=== PATIENT | male | born 1955 | race Caucasian/White ===

== ENCOUNTER → 2018-07-24 | Outpatient (CLI) | END | disposition home or self-care (01) ==

== ENCOUNTER 2018-11-08 07:30 | Inpatient (IN) | payer BC ==
[~2018-11-08] VITALS: Ht 177.8 cm; Wt 87.9 kg
[~2018-11-08 07:30] MED LIST: CEFAZOLIN 2 GM/50 ML (PMX) 50 ML IVPB ONE; HIP PAIN COCKTAIL (CEFUROXIME) INJ SCH; LACTATED RINGER'S 1,000 ML IV* SCH; TRANEXAMIC ACID 1,000 MG in NS 100 ML INTRA-OP X1 IVPB ONE; TRANEXAMIC ACID 1,000 MG in NS 100 ML PRE-OP X1 IVPB ONE
[2019-01-10] VITALS (31 sets, daily range): BP systolic 97–132; BP diastolic 57–80; PULSE 52–88; RESP 15–24; Ht 177.8 cm; Wt 87.9 kg
[2019-01-10] MEDS ORDERED: TRANEXAMIC ACID 1GM/100ML(PMX) 100 ML INTRA-OP X1 IVPB ONE (06:00)
[2019-01-10] MEDS ORDERED: CEFAZOLIN 2 GM/50 ML (PMX) 50 ML IVPB ONE (06:00)
[2019-01-10] MEDS ORDERED: LACTATED RINGER'S 1,000 ML IV* SCH (06:00)
[2019-01-10] MEDS ORDERED: TRANEXAMIC ACID 1GM/100ML(PMX) 100 ML PRE-OP X1 IVPB ONE (06:00)
[2019-01-10] MEDS ORDERED: POLYMYXIN/BACITRACIN 1L IRRIG ONE (07:01)
[2019-01-10] MEDS ORDERED: BACITRACIN 50000 UNITS INJ ONE (07:01)
[2019-01-10] MEDS ORDERED: POLYMYXIN B 500000 UNIT INJ ONE (07:04)
[2019-01-10] MEDS ORDERED: ACET1TAB40 PO (07:10)
--- NOTE | 2019-01-10 07:33 | HPN ---
Date/Time of Note Date/Time of Note DATE: 01/10/19 TIME: 07:33 Interval H&P Admission Note Pt. seen H&P reviewed: No system changes DOC MITCHELL MD Jan 10, 2019 07:33
--- NOTE | 2019-01-10 07:33 | PREAC ---
Date/Time of Note Date/Time of Note DATE: 01/10/19 TIME: 07:32 Anesthesia Eval and Record Evaluation Time Pre-Procedure Interview DATE: 01/10/19 TIME: 07:32 Age 63 Sex male NPO: 8 hrs Preoperative diagnosis L hip oa Planned procedure L hip arthroplasty Past Medical History Past Medical History: Includes Pulm: Other (bronchitis) Musculoskeletal: Osteoarthritis Surgery & Anesthesia Issues No known issue Meds Anticoagulation: No Beta Jerman within 24 hr: No Reason Beta Jerman not given: Pt. not on B-Jerman Reported Medications Acetaminophen with Codeine (Acetaminophen-Cod #3 Tablet) 1 Each Tablet, 1 TAB PO Q6H, #7 TAB 01/10/19 Current Medications Lactated Ringer's 1,000 ml @ 125 mls/hr Q8H IV* ; Start 01/10/19 at 06:00; Stop 01/10/19 at 13:59 Ropivacaine/ Morphine Sulfate/ Clonidine/ Epinephrine/ Ketorolac Tromethamine/ Vancomycin HCl/ Sodium Chloride INTRA-OP INJ ; Start 01/10/19 at 15:30; Stop 01/10/19 at 21:00 Meds reviewed: Yes Allergies Coded Allergies: Sulfa (Sulfonamide Antibiotics) (Verified Allergy, Mild, 01/10/19) Allergies Reviewed: Yes Labs/Studies Labs Reviewed: Reviewed by anesthesiologist test: N/A Studies: ECG Pre-procedure Exam Last vitals Vital Signs Date Temp Pulse Resp B/P (MAP) Pulse Ox O2 O2 Flow FiO2 Time Delivery Rate 01/10/19 98.0 73 18 118/80 97 05:45 (93) Airway: Adequate mouth opening, Adequate thyromental dist Mallampati: Mallampati II Teeth: Normal Lung: Normal Heart: Normal ASA Physical Status ASA physical status: 2 Emergency: None Planned Anesthetic General/MAC: Mask, ETT, MAC Neuraxial: Spinal Planned Pain Management Sub-arachniod narcotics Pre-operative Attestations Prior to commencing anesthesia and surgery, the patient was re-evaluated, there was verification of: *The patient's identity *The results of appropriate recent lab work and preoperative vital signs *The above evaluation not changing prior to induction *Anesthetic plan, risk benefits, alternative and complications discussed with patient/family; questions answered; patient/family understands, accepts and wishes to proceed. JEYSON GROVES Jan 10, 2019 07:33
[2019-01-10] MEDS ORDERED: MIDAZOLAM 1 MG/ML 2 ML INJ ONE (07:41)
[2019-01-10] MEDS ORDERED: morphine SULFATE/PF (10 MG/10 ML) INJ ONE (07:41)
[2019-01-10] MEDS ORDERED: PHENYLephrine (100 MCG/ML) 5ML SYG ONE ×2 (07:57→08:10)
[2019-01-10] MEDS ORDERED: HYDROmorphONE 1 MG/5 ML IV SYRINGE IV PRN ×3 (08:00)
[2019-01-10] MEDS ORDERED: FENTAnyl 50 MCG/ML VIAL IV PRN ×3 (08:00)
[2019-01-10] MEDS ORDERED: MEPERIDINE 25 MG INJ IV PRN (08:00)
[2019-01-10] MEDS ORDERED: ONDANSETRON 4 MG INJ IV PRN (08:00)
[2019-01-10] MEDS ORDERED: METOCLOPRAMIDE 10 MG INJ IV PRN (08:00)
[2019-01-10] MEDS ORDERED: DIPHENHYDRAMINE 50 MG INJ IV PRN (08:00)
[2019-01-10] MEDS ORDERED: ALBUTEROL 0.083% (NEB) 2.5 MG/3 ML AMP HHN PRN (08:00)
[2019-01-10] MEDS ORDERED: TRANEXAMIC ACID 1GM/100ML(PMX) 100 ML ONE (08:05)
--- NOTE | 2019-01-10 09:45 | SIPON ---
Date/Time of Note Date/Time of Note DATE: 01/10/19 TIME: 09:44 Operative Report Preoperative Diagnosis Left Hip Osteoarthritis Postoperative Diagnosis Same Operation/Procedure Performed Left Total Hip Arthroplasty Surgeon Mike Mitchell MD parts room assistant Matheus Botello Second assist: YULIA FISCHER Anesthesia: spinal Estimated blood loss: other Transfusion Required none Specimen bone Grafts/Implants none Complications none MIKE MITCHELL MD Jan 10, 2019 09:45
--- NOTE | 2019-01-10 09:48 | OPR ---
Date/Time of Note Date/Time of Note DATE: 01/10/19 TIME: 09:45 Operative Report Free Text/Dictation DATE OF OPERATION: January 10, 2019 PREOPERATIVE DIAGNOSIS: Left hip osteoarthritis. POSTOPERATIVE DIAGNOSIS: Left hip osteoarthritis. PROCEDURES PERFORMED: 1. Left total hip arthroplasty. CPT code 61236. 2. Computer assisted navigational procedure, CPT code 92282. 3. Interpretation of AP Pelvis x-ray. 4. Interpretation of left hip, 2 views. SURGEON: Doc Mitchell. NURSE CONSULTANT: 1. BHUPINDER Muhammad 2. Matheus Botello. ANESTHESIOLOGIST: Dr. Hassan ANESTHESIA: Spinal ESTIMATED BLOOD LOSS: 300 mL. COMPLICATIONS: None. SPECIMENS: Resected bone. DISPOSITION: PACU in stable condition. IMPLANT USED: A DePuy Corail size KLA 12 stem, 36/+1.5 delta ceramic femoral head, 52 [place] Cup, 36 mm liner COMPLICATIONS: None. DISPOSITION: To PACU in stable condition. INDICATION FOR PROCEDURE: This is an 63 year-old male with endstage osteoarthritis of the left hip who had failed nonoperative management. Risks, benefits, alternatives of surgical intervention were discussed with the patient and informed consent was obtained. The risks of surgery include but are not limited to infection, deep venous thrombosis, pulmonary embolism, leg length discrepancy, fracture, damage to neurovascular structures requiring repair, loosening of the prosthesis, wear of prosthesis, need for revision surgery, heart attack, stroke, need for blood transfusion, risks associated with anesthesia and even . DESCRIPTION OF PROCEDURE: The patient was met in the preoperative suite and the correct operative site was confirmed and marked. Patient was then brought into operating room. After induction of general anesthesia, the patient was placed in the supine position on the table. The left lower extremity was prepped and draped in the usual sterile fashion. Before starting, a timeout was taken to identify the correct operative site, the patients name and medical record number and to confirm the preoperative antibiotics consisting of 1 gram of IV Ancef, along with 1 gram of tranexamic acid were administered. At this point, an 8 cm incision was made approximately 2 cm lateral and 1 cm distal to the ASIS. The incision was carried down to the fascia. The fascia was then incised. Then, 2 Allis clamps were placed. The interval was then bluntly developed and the tensor fascia la was then retracted laterally. The lateral circumflex vessels were identified and coagulated. The anterior capsule was then visualized and a capsulotomy was performed. At this point, markings were made for the napkin ring osteotomy of the femoral neck. Using the saw the initial osteotomy was then made and completed with the use of an osteotome. A Mel was then used to remove the napkin ring and a corkscrew was then placed in the femoral head and the head was then removed. The head was sized to 49 mm. Sequential reaming was begun with a 47 mm reamer, going up to a 51 mm reamer. A trial 52 mm cup was then impacted and the radlink was then used to determine the appropriate an teversion and abduction of the cup. The cup was noted to be in approximately 42 degrees of inclination, and 20 degrees of anteversion. The trial was then removed. The appropriate size cup was then placed and again the radlink was used to determine the inclination and anteversion, and was noted be unchanged. The 36 mm liner was then impacted into place and the final acetabular x-rays were taken which again demonstrated the cup to be in appropriate abduction and anteversion. At this point, the femoral lift was then used and the leg was then placed in external rotation, extension, and adduction. Retractors were placed and the fe moral releases were performed using a box osteotome followed by a canal finder. Sequential broaching was begun with a 8 broach going up to a size 12 broach. The trial 12 mm standard offset stem along with a 36/+1.5 trial head and neck were placed. The hip was then reduced and taken through range of motion, noted to be stable in extension and external rotation of up to 110 degrees. AP x-rays of the pelvis and left hip, 2 view x-rays were taken. The x-rays demonstrated the prosthesis to be in the correct position with equal leg lengths. The trial components were then removed. The appropriate sized components were then placed. The hip was again reduced with unchanged stability and equal leg lengths and no fractures were seen. The hip was again taken t hrough range of motion and noted to be stable to extension and external rotation. The wound was then thoroughly irrigated. The capsule and the fascia were closed using #1 Stratafix. The subcutaneous tissue was closed using 2-0 Vicryl and the skin with 4-0 Monocryl in subcuticular fashion and Steri-Strips were applied. There were no complications. Patient was awakened and taken to postoperative care unit in stable condition. Prior to transfer, the patient was noted to have equal leg lengths and a palpable dorsalis pedis pulse. POSTOPERATIVE CARE: Patient will be weightbearing as tolerated. Patient will work with physical therapy, and receive multimodal pain management.. Patient will receive two additional doses of IV Ancef along with aspirin 81 mg p.o. b.i.d. for 6 weeks. Patient will have SCDs while in the hospital. Upon discharge, patient will follow up in my office within 2 weeks postoperatively. DOC MITCHELL MD Jan 10, 2019 09:48
[2019-01-10] MEDS ORDERED: NEOSTIGMINE 10 MG INJ ONE (09:56)
[2019-01-10] MEDS ORDERED: GLYCOPYRROLATE 0.4 MG INJ ONE (09:56)
[2019-01-10] MEDS ORDERED: PROPOFOL 20 ML ONE (09:57)
[2019-01-10] MEDS ORDERED: SUCCINYLCHOLINE CHLORIDE 100 MG/5 ML SYG IV ONE (09:57)
[2019-01-10] MEDS ORDERED: LIDOCAINE 100 MG SYRINGE ONE (09:57)
[2019-01-10] MEDS ORDERED: ROCURONIUM 50 MG INJ ONE (09:57)
[2019-01-10] MEDS ORDERED: CEFAZOLIN 1 GM INJ ONE (09:57)
[2019-01-10] MEDS ORDERED: ROPIVACAINE 0.5 % 30 ML VIAL ONE (09:58)
[2019-01-10] MEDS ORDERED: BISACODYL 10 MG SUPP PR PRN (10:00)
[2019-01-10] MEDS ORDERED: SENNA/DOCUSATE NA (8.6MG/50MG) TAB PO PRN (10:00)
[2019-01-10] MEDS ORDERED: NA PHOSPHATE/BIPHOS 133 ML ENEMA PR PRN (10:00)
[2019-01-10] MEDS ORDERED: NACL 0.9% 3 ML SYG IV SCH (10:00)
[2019-01-10] MEDS ORDERED: NALOXONE (0.4 MG/ML) INJ IV PRN (10:00)
[2019-01-10] MEDS ORDERED: KETOROLAC 15 MG INJ IV PRN (10:00)
[2019-01-10] MEDS ORDERED: DOCUSATE SODIUM 100 MG CAP PO ONE (10:00)
[2019-01-10] MEDS ORDERED: oxyCODONE 5 MG TAB PO PRN (10:00)
[2019-01-10] MEDS ORDERED: MAGNESIUM HYDROXIDE 30ML CUP PO PRN (10:00)
[2019-01-10] MEDS: ONDANSETRON 4 MG INJ IV SCH ×3 (11:03→23:58)
[2019-01-10] MEDS: CEFAZOLIN 2 GM/50 ML (PMX) 50 ML IVPB SCH ×2 (11:11→20:35)
--- NOTE | 2019-01-10 11:57 | CONS ---
Assessment/Plan Assessment/Plan Hospital Course (Demo Recall) 63-year-old male with no significant past medical history who was brought in for an elective left total hip arthroplasty for left hip osteoarthritis. The patient underwent the surgery and is being admitted to inpatient setting for further monitoring. 1. Left hip osteoarthritis. -Status post total left hip arthroplasty on 01/10/2019. -Continue pain control. -Weightbearing and physical therapy as per orthopedic surgery. -Anticoagulation as per orthopedic surgery. 2. Bronchospasms -Continue PRN antihypertensives. Additional diagnostic and therapeutic orders will be added as clinically indicated. Thank you Dr. Jones for allowing us to participate in this patient's care. We will continue to follow the patient along with you. The patient was seen in collaboration with Dr. Rucker. Consultation Date/Type/Reason Admit Date/Time Jan 10, 2019 at 05:53 Date of Consultation: Jan 10, 2019 Type of Consult Medical Reason for Consultation Medical management. Requesting Provider: DOC MITCHELL MD Date/Time of Note DATE: 01/10/19 TIME: 11:57 Hx of Present Illness This is a 63-year-old male with no significant past medical history, who was brought to [facility] for an elective left total hip arthroplasty for left hip osteoarthritis. The patient underwent the surgery without any significant complications. The patient is being admitted to inpatient setting for further monitoring. Hospitalist consult was obtained for medical management. Constitutional: no complaints Eyes: no complaints ENT: no complaints Respiratory: cough, sputum Cardiovascular: no complaints Gastrointestinal: no complaints Genitourinary: no complaints Musculoskeletal: bone/joint pain Skin: no complaints Neurologic: no complaints Endocrine: no complaints Lymphatic: no complaints Psychological: no complaints Past Medical History Medical History: no pertinent history Home Meds Reported Medications Acetaminophen with Codeine (Acetaminophen-Cod #3 Tablet) 1 Each Tablet, 1 TAB PO Q6H, #7 TAB 01/10/19 Medications Current Medications Lactated Ringer's 1,000 ml @ 125 mls/hr Q8H IV* ; Start 01/10/19 at 06:00; Stop 01/10/19 at 13:59 Ropivacaine/ Morphine Sulfate/ Clonidine/ Epinephrine/ Ketorolac Tromethamine/ Vancomycin HCl/ Sodium Chloride INTRA-OP INJ ; Start 01/10/19 at 15:30; Stop 01/10/19 at 21:00 Hydromorphone HCl (Dilaudid) 0.2 mg PACU PRN IV MILD PAIN 1-3; Start 01/10/19 at 08:00; Stop 01/10/19 at 12:00 Hydromorphone HCl (Dilaudid) 0.4 mg PACU PRN IV MOD PAIN 4-6; Start 01/10/19 at 08:00; Stop 01/10/19 at 12:00 Hydromorphone HCl (Dilaudid) 0.6 mg PACU PRN IV SEVERE PAIN 7-10; Start 01/10/19 at 08:00; Stop 01/10/19 at 12:00 Fentanyl (Sublimaze) 25 mcg PACU ORDER PRN IV MILD PAIN 1-3; Start 01/10/19 at 08:00; Stop 01/10/19 at 12:00 Fentanyl (Sublimaze) 50 mcg PACU ORDER PRN IV MOD PAIN 4-6; Start 01/10/19 at 08:00; Stop 01/10/19 at 12:00 Fentanyl (Sublimaze) 75 mcg PACU ORDER PRN IV SEVERE PAIN 7-10; Start 01/10/19 at 08:00; Stop 01/10/19 at 12:00 Ondansetron HCl (Zofran Inj) 4 mg PACU ORDER PRN IV NAUSEA/VOMITING; Start 01/10/19 at 08:00; Stop 01/10/19 at 12:00 Metoclopramide HCl (Reglan) 10 mg PACU ORDER PRN IV NAUSEA/VOMITING; Start 01/10/19 at 08:00; Stop 01/10/19 at 12:00 Albuterol (Proventil 0.083% (Neb)) 2.5 mg PACU ORDER PRN HHN .WHEEZING; Start 01/10/19 at 08:00; Stop 01/10/19 at 12:00 Meperidine HCl (Demerol) 25 mg PACU ORDER PRN IV .RIGORS; Start 01/10/19 at 08:00; Stop 01/10/19 at 12:00 Diphenhydramine HCl (Benadryl) 25 mg PACU ORDER PRN IV .PRURITUS; Start 01/10/19 at 08:00; Stop 01/10/19 at 12:00 Oxycodone HCl (Roxicodone) 5 mg Q4H PRN PO .PAIN; Start 01/10/19 at 10:00 Ondansetron HCl (Zofran Inj) 4 mg Q6H IV Last administered on 01/10/19at 11:03; Admin Dose 4 MG; Start 01/10/19 at 10:00; Stop 01/11/19 at 04:01 Cefazolin Sodium/ Dextrose 50 ml @ 100 mls/hr Q8H IVPB Last administered on 01/10/19at 11:11; Admin Dose 100 MLS/HR; Start 01/10/19 at 10:00; Stop 01/11/19 at 02:29 Celecoxib (Celebrex) 100 mg BID PO ; Start 01/11/19 at 09:00; Status UNV Gabapentin (Neurontin) 100 mg TID PO ; Start 01/10/19 at 13:00 Pantoprazole (Protonix Tab) 40 mg DAILY@06 PO ; Start 01/11/19 at 06:00 Docusate Sodium (Colace) 200 mg BID PO ; Start 01/11/19 at 09:00; Stop 01/13/19 at 21:01 Simethicone (Mylicon) 80 mg TID PRN PO .GAS; Start 01/10/19 at 10:00 Senna/Docusate Sodium (Senokot-S) 2 tab BID PRN PO .CONSTIPATION; Start 01/10/19 at 10:00 Magnesium Hydroxide (Milk Of Mag) 30 ml HS PRN PO .CONSTIPATION; Start 01/10/19 at 10:00 Bisacodyl (Dulcolax Supp) 10 mg DAILY PRN WV .CONSTIPATION; Start 01/10/19 at 10:00 Sodium Biphosphate/ Sodium Phosphate (Fleet Enema) 133 ml DAILY PRN WV .CONSTIPATION; Start 01/10/19 at 10:00 Ketorolac Tromethamine (Toradol) 15 mg Q6H PRN IV .PAIN; Start 01/10/19 at 10:00 Naloxone HCl (Narcan) 0.2 mg Q2M PRN IV .RESP RATE; Start 01/10/19 at 10:00 IV Flush (NS 3 ml) 3 ml per protocol IV ; Start 01/10/19 at 10:00 Aspirin (Halfprin) 81 mg BID PO ; Start 01/11/19 at 09:00 Acetaminophen/ Hydrocodone Bitart (Keller (5/325)) 2 tab Q6H PRN PO MODERATE PAIN LEVEL 4-6; Start 01/10/19 at 10:00 Allergies: Coded Allergies: Sulfa (Sulfonamide Antibiotics) (Verified Allergy, Mild, 01/10/19) Past Surgical History Right total hip arthroplasty. Social History Alcohol Use: none Smoking Status: Never smoker Drug Use: none Exam/Review of Systems Exam Vitals Vital Signs Date Temp Pulse Resp B/P (MAP) Pulse Ox O2 O2 Flow FiO2 Time Delivery Rate 01/10/19 97.5 57 18 112/57 100 Nasal 11:48 (75) Cannula 01/10/19 8.0 10:20 Exam General: Adequately build 63 year-old male lying in bed in no apparent distress. HEENT: Normocephalic, atraumatic. Eyes: Anicteric sclerae, conjunctivae clear. ENT: Nasal septum midline, oral mucosa moist. Neck supple, no JVD noticed. Respiratory: Bilaterally clear breath sounds. No use of accessory muscles of respiration. No adventitious breath sounds. Cardiovascular: S1, S2 heard. Regular rate and rhythm. Abdomen: Soft, nontender, and nondistended. Bowel sounds positive in all 4 quadrants. Genitourinary: Deferred. Extremities: No cyanosis, no clubbing, no edema. Peripheral pulses palpable. Left hip surgical dressing. Neurologic: Cranial nerves II through XII grossly intact. The patient is awake, alert, and oriented. Skin: Normal skin turgor. No skin rashes. Results Results 24hrs Laboratory Tests Test 01/09/19 15:13 Lab Scanned Report REFERENCE LAB Imaging Imaging Operative Report Free Text/Dictation DATE OF OPERATION: January 10, 2019 PREOPERATIVE DIAGNOSIS: Left hip osteoarthritis. POSTOPERATIVE DIAGNOSIS: Left hip osteoarthritis. PROCEDURES PERFORMED: 1. Left total hip arthroplasty. CPT code 11759. 2. Computer assisted navigational procedure, CPT code 87482. 3. Interpretation of AP Pelvis x-ray. 4. Interpretation of left hip, 2 views. SURGEON: Doc Mitchell. APPLICATION DEVELOPMENT TEAM LEAD: 1. BHUPINDER Muhammad 2. Matheus Botello. ANESTHESIOLOGIST: Dr. Hassan ANESTHESIA: Spinal ESTIMATED BLOOD LOSS: 300 mL. Medications Medication Current Medications Lactated Ringer's 1,000 ml @ 125 mls/hr Q8H IV* ; Start 01/10/19 at 06:00; Stop 01/10/19 at 13:59 Ropivacaine/ Morphine Sulfate/ Clonidine/ Epinephrine/ Ketorolac Tromethamine/ Vancomycin HCl/ Sodium Chloride INTRA-OP INJ ; Start 01/10/19 at 15:30; Stop 01/10/19 at 21:00 Hydromorphone HCl (Dilaudid) 0.2 mg PACU PRN IV MILD PAIN 1-3; Start 01/10/19 at 08:00; Stop 01/10/19 at 12:00 Hydromorphone HCl (Dilaudid) 0.4 mg PACU PRN IV MOD PAIN 4-6; Start 01/10/19 at 08:00; Stop 01/10/19 at 12:00 Hydromorphone HCl (Dilaudid) 0.6 mg PACU PRN IV SEVERE PAIN 7-10; Start 01/10/19 at 08:00; Stop 01/10/19 at 12:00 Fentanyl (Sublimaze) 25 mcg PACU ORDER PRN IV MILD PAIN 1-3; Start 01/10/19 at 08:00; Stop 01/10/19 at 12:00 Fentanyl (Sublimaze) 50 mcg PACU ORDER PRN IV MOD PAIN 4-6; Start 01/10/19 at 08:00; Stop 01/10/19 at 12:00 Fentanyl (Sublimaze) 75 mcg PACU ORDER PRN IV SEVERE PAIN 7-10; Start 01/10/19 at 08:00; Stop 01/10/19 at 12:00 Ondansetron HCl (Zofran Inj) 4 mg PACU ORDER PRN IV NAUSEA/VOMITING; Start 01/10/19 at 08:00; Stop 01/10/19 at 12:00 Metoclopramide HCl (Reglan) 10 mg PACU ORDER PRN IV NAUSEA/VOMITING; Start 01/10/19 at 08:00; Stop 01/10/19 at 12:00 Albuterol (Proventil 0.083% (Neb)) 2.5 mg PACU ORDER PRN HHN .WHEEZING; Start 01/10/19 at 08:00; Stop 01/10/19 at 12:00 Meperidine HCl (Demerol) 25 mg PACU ORDER PRN IV .RIGORS; Start 01/10/19 at 08:00; Stop 01/10/19 at 12:00 Diphenhydramine HCl (Benadryl) 25 mg PACU ORDER PRN IV .PRURITUS; Start 01/10/19 at 08:00; Stop 01/10/19 at 12:00 Oxycodone HCl (Roxicodone) 5 mg Q4H PRN PO .PAIN; Start 01/10/19 at 10:00 Ondansetron HCl (Zofran Inj) 4 mg Q6H IV Last administered on 01/10/19at 11:03; Admin Dose 4 MG; Start 01/10/19 at 10:00; Stop 01/11/19 at 04:01 Cefazolin Sodium/ Dextrose 50 ml @ 100 mls/hr Q8H IVPB Last administered on 01/10/19at 11:11; Admin Dose 100 MLS/HR; Start 01/10/19 at 10:00; Stop 01/11/19 at 02:29 Celecoxib (Celebrex) 100 mg BID PO ; Start 01/11/19 at 09:00; Status UNV Gabapentin (Neurontin) 100 mg TID PO ; Start 01/10/19 at 13:00 Pantoprazole (Protonix Tab) 40 mg DAILY@06 PO ; Start 01/11/19 at 06:00 Docusate Sodium (Colace) 200 mg BID PO ; Start 01/11/19 at 09:00; Stop 01/13/19 at 21:01 Simethicone (Mylicon) 80 mg TID PRN PO .GAS; Start 01/10/19 at 10:00 Senna/Docusate Sodium (Senokot-S) 2 tab BID PRN PO .CONSTIPATION; Start 01/10/19 at 10:00 Magnesium Hydroxide (Milk Of Mag) 30 ml HS PRN PO .CONSTIPATION; Start 01/10/19 at 10:00 Bisacodyl (Dulcolax Supp) 10 mg DAILY PRN WV .CONSTIPATION; Start 01/10/19 at 10:00 Sodium Biphosphate/ Sodium Phosphate (Fleet Enema) 133 ml DAILY PRN WV .CONSTIPATION; Start 01/10/19 at 10:00 Ketorolac Tromethamine (Toradol) 15 mg Q6H PRN IV .PAIN; Start 01/10/19 at 10:00 Naloxone HCl (Narcan) 0.2 mg Q2M PRN IV .RESP RATE; Start 01/10/19 at 10:00 IV Flush (NS 3 ml) 3 ml per protocol IV ; Start 01/10/19 at 10:00 Aspirin (Halfprin) 81 mg BID PO ; Start 01/11/19 at 09:00 Acetaminophen/ Hydrocodone Bitart (Keller (5/325)) 2 tab Q6H PRN PO MODERATE PAIN LEVEL 4-6; Start 01/10/19 at 10:00 ANU SHEPPARD NP Jan 10, 2019 11:57
[2019-01-10] MEDS: GABAPENTIN 100 MG CAP PO SCH ×2 (12:53→20:36)
[2019-01-10] MEDS ORDERED: hydrALAzine 20 MG INJ IV PRN (14:00)
[2019-01-10] MEDS ORDERED: HIP PAIN COCKTAIL VANCO INJ SCH ×7 (15:30)
[2019-01-11] MEDS: CEFAZOLIN 2 GM/50 ML (PMX) 50 ML IVPB SCH ×3 (02:00→04:59)
[2019-01-11 02:30] VITALS: BP 104/56; PULSE 84; RESP 20
[2019-01-11] MEDS: ONDANSETRON 4 MG INJ IV SCH ×2 (04:52→04:58)
[2019-01-11] MEDS: PANTOPRAZOLE (EC) 40 MG TAB PO SCH (05:48)
--- NOTE | 2019-01-11 06:35 | PAC ---
Date/Time of Note Date/Time of Note DATE: 01/11/19 TIME: 06:35 Post-Anesthesia Notes Post-Anesthesia Note Last documented vital signs Vital Signs Date Temp Pulse Resp B/P (MAP) Pulse Ox O2 O2 Flow FiO2 Time Delivery Rate 01/11/19 98.7 84 20 104/56 96 02:30 (72) 01/10/19 Nasal 15:22 Cannula 01/10/19 2.0 11:50 Activity: WNL Respiratory function: WNL Cardiovascular function: WNL Mental status: Baseline Pain reasonably controlled: Yes Hydration appropriate: Yes Nausea/Vomiting absent: Yes JEYSON GROVES Jan 11, 2019 06:35
[2019-01-11 07:29] VITALS: BP 113/72; PULSE 78; RESP 18
[2019-01-11] MEDS ORDERED: ALBUTEROL HFA 8 GM INHALER INH PRN (08:00)
[2019-01-11] MEDS ORDERED: CELECOXIB 100 MG CAP PO SCH (09:00)
[2019-01-11] MEDS: GABAPENTIN 100 MG CAP PO SCH ×3 (09:08→20:45)
[2019-01-11] MEDS: DOCUSATE SODIUM 100 MG CAP PO SCH ×2 (09:08→20:45)
[2019-01-11] MEDS: ASPIRIN (EC) 81 MG TAB PO SCH ×2 (09:08→20:45)
--- NOTE | 2019-01-11 09:22 | CONS ---
Assessment/Plan Assessment/Plan Hospital Course (Demo Recall) SUBJECTIVE: The patient had urinary retention last night and required a Burch catheter placement. OBJECTIVE: Physical Exam General: Adequately build 63 year-old male lying in bed in no apparent distress. HEENT: Normocephalic, atraumatic. Eyes: Anicteric sclerae, conjunctivae clear. ENT: Nasal septum midline, oral mucosa moist. Neck supple, no JVD noticed. Respiratory: Bilaterally clear breath sounds. No use of accessory muscles of respiration. No adventitious breath sounds. Cardiovascular: S1, S2 heard. Regular rate and rhythm. Abdomen: Soft, nontender, and nondistended. Bowel sounds positive in all 4 quadrants. Genitourinary: Deferred. Extremities: No cyanosis, no clubbing, no edema. Peripheral pulses palpable. Left hip surgical dressing. Neurologic: Cranial nerves II through XII grossly intact. The patient is awake, alert, and oriented. Skin: Normal skin turgor. No skin rashes. Labs & Vitals per chart ASSESSMENT & PLAN 63-year-old male with no significant past medical history who was brought in for an elective left total hip arthroplasty for left hip osteoarthritis. The patient underwent the surgery and was admitted to inpatient setting for further monitoring. 1. Left hip osteoarthritis. -Status post total left hip arthroplasty on 01/10/2019. -Continue pain control. -Weightbearing and physical therapy as per orthopedic surgery. -Anticoagulation as per orthopedic surgery. 2. Bronchospasms -Continue PRN inhaled bronchodilators. 3. Urinary retention. -Status post Burch catheter placement. -Obtain urology evaluation. Recommendations: Obtain urology consult before discontinuing the Burch catheter since the nurses had a hard time inserting Burch on this patient. Thank you Dr. Jones for allowing us to participate in this patient's care. We will continue to follow the patient along with you. The patient was seen in collaboration with Dr. Rucker. Consultation Date/Type/Reason Admit Date/Time Jan 10, 2019 at 05:53 Initial Consult Date 01/10/19 Type of Consult Medical Reason for Consultation Medical management. Requesting Provider: DOC MITCHELL MD Date/Time of Note DATE: 01/11/19 TIME: 09:20 Exam/Review of Systems Exam Vitals Vital Signs Date Temp Pulse Resp B/P (MAP) Pulse Ox O2 O2 Flow FiO2 Time Delivery Rate 01/11/19 98.9 78 18 113/72 98 07:29 (86) 01/10/19 Nasal 15:22 Cannula 01/10/19 2.0 11:50 Intake and Output 01/10/19 01/10/19 01/11/19 1515:00 23:00 07:00 IntakeIntake Total 200 ml 750 ml 50 ml OutputOutput Total 900 ml BalanceBalance 200 ml 750 ml -850 ml Results Result Diagram: 01/11/19 0429 01/11/19 0428 Results 24hrs Laboratory Tests Test 01/11/19 00:40 01/11/19 04:28 01/11/19 04:29 01/11/19 07:22 Urine Color YELLOW Urine Clarity CLEAR Urine pH 5.0 Urine Specific 1.012 [place] Urine Ketones TRACE A Urine Nitrite NEGATIVE Urine Bilirubin NEGATIVE Urine Urobilinogen NEGATIVE Urine Leukocyte NEGATIVE Esterase Urine Hemoglobin NEGATIVE Urine Glucose NEGATIVE Urine Total NEGATIVE Protein Prothrombin Time 13.0 Prothrombin Time 1.0 Ratio INR International 0.97 Normalized Ratio Sodium Level 140 Potassium Level 4.6 Chloride Level 104 Carbon Dioxide 31 Level Anion Gap 5 Blood Urea 14 Nitrogen Creatinine 0.75 Est Glomerular > 60 Filtrat Rate mL/min Glucose Level 97 Calcium Level 8.6 White Blood Count 7.3 Red Blood Count 3.63 L Hemoglobin 11.6 L Hematocrit 34.5 L Mean Corpuscular 95.0 Volume Mean Corpuscular 32.0 Hemoglobin Mean Corpuscular 33.6 Hemoglobin Concent Red Cell 12.3 Distribution Width Platelet Count 212 Mean Platelet 9.5 Volume Immature 0.400 Granulocytes % Neutrophils % 55.9 Lymphocytes % 33.5 Monocytes % 8.1 Eosinophils % 1.8 Basophils % 0.3 Nucleated Red 0.0 Blood Cells % Immature 0.030 Granulocytes # Neutrophils # 4.1 Lymphocytes # 2.4 Monocytes # 0.6 Eosinophils # 0.1 Basophils # 0.0 Nucleated Red 0.0 Blood Cells # Lab Scanned Report REFERENCE LAB Medications Medication Current Medications Oxycodone HCl (Roxicodone) 5 mg Q4H PRN PO .PAIN; Start 01/10/19 at 10:00 Celecoxib (Celebrex) 100 mg BID PO ; Start 01/11/19 at 09:00; Status UNV Gabapentin (Neurontin) 100 mg TID PO Last administered on 01/11/19at 09:08; Admin Dose 100 MG; Start 01/10/19 at 13:00 Pantoprazole (Protonix Tab) 40 mg DAILY@06 PO Last administered on 01/11/19at 05:48; Admin Dose 40 MG; Start 01/11/19 at 06:00 Docusate Sodium (Colace) 200 mg BID PO Last administered on 01/11/19at 09:08; Admin Dose 200 MG; Start 01/11/19 at 09:00; Stop 01/13/19 at 21:01 Simethicone (Mylicon) 80 mg TID PRN PO .GAS; Start 01/10/19 at 10:00 Senna/Docusate Sodium (Senokot-S) 2 tab BID PRN PO .CONSTIPATION; Start 01/10/19 at 10:00 Magnesium Hydroxide (Milk Of Mag) 30 ml HS PRN PO .CONSTIPATION; Start 01/10/19 at 10:00 Bisacodyl (Dulcolax Supp) 10 mg DAILY PRN [place] .CONSTIPATION; Start 01/10/19 at 10:00 Sodium Biphosphate/ Sodium Phosphate (Fleet Enema) 133 ml DAILY PRN [place] .CONSTIPATION; Start 01/10/19 at 10:00 Ketorolac Tromethamine (Toradol) 15 mg Q6H PRN IV .PAIN; Start 01/10/19 at 10:00 Naloxone HCl (Narcan) 0.2 mg Q2M PRN IV .RESP RATE; Start 01/10/19 at 10:00 IV Flush (NS 3 ml) 3 ml per protocol IV ; Start 01/10/19 at 10:00 Aspirin (Halfprin) 81 mg BID PO Last administered on 01/11/19at 09:08; Admin Dose 81 MG; Start 01/11/19 at 09:00 Acetaminophen/ Hydrocodone Bitart ([place] (5/325)) 2 tab Q6H PRN PO MODERATE PAIN LEVEL 4-6; Start 01/10/19 at 10:00 Hydralazine HCl (Apresoline) 10 mg Q6H PRN IV SBP>160; Start 01/10/19 at 14:00 Albuterol (Ventolin Hfa) 2 puff Q4H RESP THERAPY PRN INH Dyspnea; Start 01/11/19 at 08:00 ANU SHEPPARD NP Jan 11, 2019 09:22
[2019-01-11] MEDS: HYDROCODONE/APAP (5/325) TAB PO PRN ×2 (13:30→21:10)
[2019-01-11 13:45] VITALS: BP 115/60; PULSE 78; RESP 20
[2019-01-11] MEDS ORDERED: ACETAMINOPHEN 500 MG TAB PO PRN (14:30)
[2019-01-11 19:55] VITALS: BP 108/62; PULSE 84; RESP 20
--- NOTE | 2019-01-11 20:47 | CONS ---
Assessment/Plan Assessment/Plan Hospital Course (Demo Recall) 63-year-old male underwent left total hip replacement on January 10, 2019. Postop he was not able to urinate and the nursing staff had difficulty inserting a catheter for him but eventually they were able to insert one. Because of this problem a urological consultation was requested. Prior to his recent surgery patient states that he used to have nocturia about 2 times and during the day he voids 4-5 times. He states that his surgery was canceled before because his primary care physician found that he has urinary tract infection and he was treated for that. He describes his urinary stream is strong he denies any dysuria and there is no history of gross hematuria. He does have mild postvoid dribbling. He thinks about 4 years ago he may have passed a kidney stone as he had severe right flank pain with nausea and vomiting. He denies any history of sexually transmitted disease. On the exam the Burch catheter is draining clear urine and his prostate is mildly enlarged. Since he had no problem urinating before he should be able to urinate once the effect of anesthesia and pain medications subsides and he is able to ambulate. Therefore I would start him on tamsulosin and keep the catheter overnight and have it removed at 6 AM and then he will be ambulating and hopefully he will be urinating on his own. I will have the nurses check his postvoid residual with bladder scan but not attempt to catheterize him unless they call me first. If he does void and the postvoid residual is less than 200 mL then he may be discharged from a urological standpoint. Consultation Date/Type/Reason Admit Date/Time Jan 10, 2019 at 05:53 Date of Consultation: Jan 11, 2019 Type of Consult Urology Reason for Consultation Urinary retention Requesting Provider: MECHE ZUNIGA MD Date/Time of Note DATE: 01/11/19 TIME: 20:38 Hx of Present Illness 63-year-old male underwent left total hip replacement on January 10, 2019. Postop he was not able to urinate and the nursing staff had difficulty inserting a catheter for him but eventually they were able to insert one. Because of this problem a urological consultation was requested. Prior to his recent surgery patient states that he used to have nocturia about 2 times and during the day he voids 4-5 times. He states that his surgery was canceled before because his pr imary care physician found that he has urinary tract infection and he was treated for that. He describes his urinary stream is strong he denies any dysuria and there is no history of gross hematuria. He does have mild postvoid dribbling. He thinks about 4 years ago he may have passed a kidney stone as he had severe right flank pain with nausea and vomiting. He denies any history of sexually transmitted disease. Constitutional: no complaints Eyes: no complaints ENT: no complaints Respiratory: no complaints; No shortness of breath Cardiovascular: no complaints; No chest pain Gastrointestinal: no complaints Genitourinary: other (As per history of present illness) Musculoskeletal: other (Status post left total hip replacement) Skin: no complaints Neurologic: no complaints Endocrine: no complaints Lymphatic: no complaints Psychological: no complaints Immunologic: no complaints Past Medical History Medical History: no pertinent history, other (History of jaundice at a young age and also he was diagnosed with Leandro-Avila virus) Home Meds Reported Medications Acetaminophen with Codeine (Acetaminophen-Cod #3 Tablet) 1 Each Tablet, 1 TAB PO Q6H, #7 TAB 01/10/19 Medications Current Medications Oxycodone HCl (Roxicodone) 5 mg Q4H PRN PO .PAIN; Start 01/10/19 at 10:00 Celecoxib (Celebrex) 100 mg BID PO ; Start 01/11/19 at 09:00; Status UNV Gabapentin (Neurontin) 100 mg TID PO Last administered on 01/11/19at 12:58; Admin Dose 100 MG; Start 01/10/19 at 13:00 Pantoprazole (Protonix Tab) 40 mg DAILY@06 PO Last administered on 01/11/19at 05:48; Admin Dose 40 MG; Start 01/11/19 at 06:00 Docusate Sodium (Colace) 200 mg BID PO Last administered on 01/11/19at 09:08; Admin Dose 200 MG; Start 01/11/19 at 09:00; Stop 01/13/19 at 21:01 Simethicone (Mylicon) 80 mg TID PRN PO .GAS; Start 01/10/19 at 10:00 Senna/Docusate Sodium (Senokot-S) 2 tab BID PRN PO .CONSTIPATION; Start 01/10/19 at 10:00 Magnesium Hydroxide (Milk Of Mag) 30 ml HS PRN PO .CONSTIPATION; Start 01/10/19 at 10:00 Bisacodyl (Dulcolax Supp) 10 mg DAILY PRN [place] .CONSTIPATION; Start 01/10/19 at 10:00 Sodium Biphosphate/ Sodium Phosphate (Fleet Enema) 133 ml DAILY PRN [place] .CONSTIPATION; Start 01/10/19 at 10:00 Ketorolac Tromethamine (Toradol) 15 mg Q6H PRN IV .PAIN; Start 01/10/19 at 10:00 Naloxone HCl (Narcan) 0.2 mg Q2M PRN IV .RESP RATE; Start 01/10/19 at 10:00 IV Flush (NS 3 ml) 3 ml per protocol IV ; Start 01/10/19 at 10:00 Aspirin (Halfprin) 81 mg BID PO Last administered on 01/11/19at 09:08; Admin Dose 81 MG; Start 01/11/19 at 09:00 Acetaminophen/ Hydrocodone Bitart ([place] (5/325)) 2 tab Q6H PRN PO MODERATE PAIN LEVEL 4-6 Last administered on 01/11/19at 13:30; Admin Dose 2 TAB; Start 01/10/19 at 10:00 Hydralazine HCl (Apresoline) 10 mg Q6H PRN IV SBP>160; Start 01/10/19 at 14:00 Albuterol (Ventolin Hfa) 2 puff Q4H RESP THERAPY PRN INH Dyspnea; Start 01/11/19 at 08:00 Acetaminophen (Tylenol Tab) 500 mg Q6H PRN PO MILD PAIN(1-3)OR ELEVATED TEMP; Start 01/11/19 at 14:30 Tamsulosin HCl (Flomax) 0.4 mg BID PO ; Start 01/11/19 at 21:00; Status UNV Allergies: Coded Allergies: Sulfa (Sulfonamide Antibiotics) (Verified Allergy, Mild, 01/10/19) Past Surgical History Past Surgical Hx: appendectomy, other (His recent left total hip replacement) Social History Alcohol Use: occasionally Smoking Status: Never smoker Drug Use: none Exam/Review of Systems Exam Vitals Vital Signs Date Temp Pulse Resp B/P (MAP) Pulse Ox O2 O2 Flow FiO2 Time Delivery Rate 01/11/19 100.5 78 20 115/60 98 13:45 (78) 01/10/19 Nasal 15:22 Cannula 01/10/19 2.0 11:50 Intake and Output 01/10/19 01/10/19 01/11/19 1414:59 22:59 06:59 IntakeIntake Total 200 ml 750 ml 50 ml OutputOutput Total 900 ml BalanceBalance 200 ml 750 ml -850 ml Constitutional: alert, oriented Psych: no complaints Head: normocephalic Eyes: nl conjunctiva ENMT: nl external ears & nose Neck: supple, non-tender Respiratory: normal air movement; No wheezing Cardiovascular: No jugular venous distention (JVD) Gastrointestinal: soft, non-tender Genitourinary - Male: nl penis, nl scrotum, other (Rectal exam: Prostate is mildly enlarged and soft) Musculoskeletal: other (Status post left hip replacement) Extremities: No calf tenderness Neurological: nl mental status Skin: nl turgor Results Result Diagram: 01/11/19 0429 01/11/19 0428 Results 24hrs Laboratory Tests Test 01/11/19 00:40 01/11/19 04:28 01/11/19 04:29 01/11/19 07:22 Urine Color YELLOW Urine Clarity CLEAR Urine pH 5.0 Urine Specific 1.012 [place] Urine Ketones TRACE A Urine Nitrite NEGATIVE Urine Bilirubin NEGATIVE Urine Urobilinogen NEGATIVE Urine Leukocyte NEGATIVE Esterase Urine Hemoglobin NEGATIVE Urine Glucose NEGATIVE Urine Total NEGATIVE Protein Prothrombin Time 13.0 Prothrombin Time 1.0 Ratio INR International 0.97 Normalized Ratio Sodium Level 140 Potassium Level 4.6 Chloride Level 104 Carbon Dioxide 31 Level Anion Gap 5 Blood Urea 14 Nitrogen Creatinine 0.75 Est Glomerular > 60 Filtrat Rate mL/min Glucose Level 97 Calcium Level 8.6 White Blood Count 7.3 Red Blood Count 3.63 L Hemoglobin 11.6 L Hematocrit 34.5 L Mean Corpuscular 95.0 Volume Mean Corpuscular 32.0 Hemoglobin Mean Corpuscular 33.6 Hemoglobin Concent Red Cell 12.3 Distribution Width Platelet Count 212 Mean Platelet 9.5 Volume Immature 0.400 Granulocytes % Neutrophils % 55.9 Lymphocytes % 33.5 Monocytes % 8.1 Eosinophils % 1.8 Basophils % 0.3 Nucleated Red 0.0 Blood Cells % Immature 0.030 Granulocytes # Neutrophils # 4.1 Lymphocytes # 2.4 Monocytes # 0.6 Eosinophils # 0.1 Basophils # 0.0 Nucleated Red 0.0 Blood Cells # Lab Scanned Report REFERENCE LAB Medications Medication Current Medications Oxycodone HCl (Roxicodone) 5 mg Q4H PRN PO .PAIN; Start 01/10/19 at 10:00 Celecoxib (Celebrex) 100 mg BID PO ; Start 01/11/19 at 09:00; Status UNV Gabapentin (Neurontin) 100 mg TID PO Last administered on 01/11/19at 12:58; Admin Dose 100 MG; Start 01/10/19 at 13:00 Pantoprazole (Protonix Tab) 40 mg DAILY@06 PO Last administered on 01/11/19at 0 5:48; Admin Dose 40 MG; Start 01/11/19 at 06:00 Docusate Sodium (Colace) 200 mg BID PO Last administered on 01/11/19at 09:08; Admin Dose 200 MG; Start 01/11/19 at 09:00; Stop 01/13/19 at 21:01 Simethicone (Mylicon) 80 mg TID PRN PO .GAS; Start 01/10/19 at 10:00 Senna/Docusate Sodium (Senokot-S) 2 tab BID PRN PO .CONSTIPATION; Start 01/10/19 at 10:00 Magnesium Hydroxide (Milk Of Mag) 30 ml HS PRN PO .CONSTIPATION; Start 01/10/19 at 10:00 Bisacodyl (Dulcolax Supp) 10 mg DAILY PRN [place] .CONSTIPATION; Start 01/10/19 at 10:00 Sodium Biphosphate/ Sodium Phosphate (Fleet Enema) 133 ml DAILY PRN [place] .CONSTIPATION; Start 01/10/19 at 10:00 Ketorolac Tromethamine (Toradol) 15 mg Q6H PRN IV .PAIN; Start 01/10/19 at 10:00 Naloxone HCl (Narcan) 0.2 mg Q2M PRN IV .RESP RATE; Start 01/10/19 at 10:00 IV Flush (NS 3 ml) 3 ml per protocol IV ; Start 01/10/19 at 10:00 Aspirin (Halfprin) 81 mg BID PO Last administered on 01/11/19at 09:08; Admin Dose 81 MG; Start 01/11/19 at 09:00 Acetaminophen/ Hydrocodone Bitart ([place] (5/325)) 2 tab Q6H PRN PO MODERATE PAIN LEVEL 4-6 Last administered on 01/11/19at 13:30; Admin Dose 2 TAB; Start 01/10/19 at 10:00 Hydralazine HCl (Apresoline) 10 mg Q6H PRN IV SBP>160; Start 01/10/19 at 14:00 Albuterol (Ventolin Hfa) 2 puff Q4H RESP THERAPY PRN INH Dyspnea; Start 01/11/19 at 08:00 Acetaminophen (Tylenol Tab) 500 mg Q6H PRN PO MILD PAIN(1-3)OR ELEVATED TEMP; Start 01/11/19 at 14:30 Tamsulosin HCl (Flomax) 0.4 mg BID PO ; Start 01/11/19 at 21:00; Status UNV PADMINI PHILLIP MD Jan 11, 2019 20:47
[2019-01-11] MEDS: TAMSULOSIN (SR) 0.4 MG CAP PO SCH (21:10)
[2019-01-12 02:44] VITALS: BP 115/59; PULSE 81; RESP 20
[2019-01-12] MEDS: PANTOPRAZOLE (EC) 40 MG TAB PO SCH (06:09)
[2019-01-12 07:36] VITALS: BP 111/66; PULSE 73; RESP 18
[2019-01-12] MEDS: DOCUSATE SODIUM 100 MG CAP PO SCH (08:24)
[2019-01-12] MEDS: GABAPENTIN 100 MG CAP PO SCH ×2 (08:25→13:35)
[2019-01-12] MEDS: TAMSULOSIN (SR) 0.4 MG CAP PO SCH (08:25)
[2019-01-12] MEDS: ASPIRIN (EC) 81 MG TAB PO SCH (08:25)
--- NOTE | 2019-01-12 09:49 | CONS ---
Assessment/Plan Assessment/Plan Hospital Course (Demo Recall) SUBJECTIVE: The patient was evaluated by Urology last night. The patient has his Burch catheter out today. OBJECTIVE: Physical Exam General: Adequately build 63 year-old male lying in bed in no apparent distress. HEENT: Normocephalic, atraumatic. Eyes: Anicteric sclerae, conjunctivae clear. ENT: Nasal septum midline, oral mucosa moist. Neck supple, no JVD noticed. Respiratory: Bilaterally clear breath sounds. No use of accessory muscles of respiration. No adventitious breath sounds. Cardiovascular: S1, S2 heard. Regular rate and rhythm. Abdomen: Soft, nontender, and nondistended. Bowel sounds positive in all 4 quadrants. Genitourinary: Deferred. Extremities: No cyanosis, no clubbing, no edema. Peripheral pulses palpable. Left hip surgical dressing. Neurologic: Cranial nerves II through XII grossly intact. The patient is awake, alert, and oriented. Skin: Normal skin turgor. No skin rashes. Labs & Vitals per chart ASSESSMENT & PLAN 63-year-old male with no significant past medical history who was brought in for an elective left total hip arthroplasty for left hip osteoarthritis. The patient underwent the surgery and was admitted to inpatient setting for further monitoring. 1. Left hip osteoarthritis. -Status post total left hip arthroplasty on 01/10/2019. -Continue pain control. -Weightbearing and physical therapy as per orthopedic surgery. -Anticoagulation as per orthopedic surgery. 2. Bronchospasms -Continue PRN inhaled bronchodilators. 3. Urinary retention. -Status post Burch catheter placement and removal. -Urology following. 4. Normocytic, normochromic anemia. -Etiology unclear. -May need outpatient follow-up. Recommendations: If the patient is able to void, he can be discharged today from medical standpoint. Thank you Dr. Jones for allowing us to participate in this patient's care. We will continue to follow the patient along with you. The patient was seen in collaboration with Dr. Rucker. Consultation Date/Type/Reason Admit Date/Time Jan 10, 2019 at 05:53 Initial Consult Date 01/10/19 Type of Consult Medical Reason for Consultation Medical management. Requesting Provider: MECHE RUCKER MD Date/Time of Note DATE: 01/12/19 TIME: 09:45 Exam/Review of Systems Exam Vitals Vital Signs Date Temp Pulse Resp B/P (MAP) Pulse Ox O2 O2 Flow FiO2 Time Delivery Rate 01/12/19 98.3 73 18 111/66 99 Room Air 07:36 (81) 01/10/19 2.0 11:50 Intake and Output 01/11/19 01/11/19 01/12/19 1515:00 23:00 07:00 IntakeIntake Total 480 ml 860 ml 400 ml OutputOutput Total 700 ml 2650 ml 700 ml BalanceBalance -220 ml -1790 ml -300 ml Results Result Diagram: 01/12/19 0433 01/12/19 0433 Results 24hrs Laboratory Tests Test 01/12/19 04:33 White Blood Count 8.4 Red Blood Count 3.60 L Hemoglobin 11.6 L Hematocrit 33.8 L Mean Corpuscular Volume 93.9 Mean Corpuscular Hemoglobin 32.2 Mean Corpuscular Hemoglobin Concent 34.3 Red Cell Distribution Width 12.3 Platelet Count 203 Mean Platelet Volume 9.4 Immature Granulocytes % 0.200 Neutrophils % 53.2 Lymphocytes % 34.4 Monocytes % 10.2 Eosinophils % 1.6 Basophils % 0.4 Nucleated Red Blood Cells % 0.0 Immature Granulocytes # 0.020 Neutrophils # 4.5 Lymphocytes # 2.9 Monocytes # 0.9 Eosinophils # 0.1 Basophils # 0.0 Nucleated Red Blood Cells # 0.0 Prothrombin Time 13.3 Prothrombin Time Ratio 1.0 INR International Normalized Ratio 1.00 Sodium Level 140 Potassium Level 4.0 Chloride Level 103 Carbon Dioxide Level 30 Anion Gap 7 Blood Urea Nitrogen 10 Creatinine 0.75 Est Glomerular Filtrat Rate mL/min > 60 Glucose Level 112 Calcium Level 8.8 Medications Medication Current Medications Oxycodone HCl (Roxicodone) 5 mg Q4H PRN PO .PAIN; Start 01/10/19 at 10:00 Celecoxib (Celebrex) 100 mg BID PO ; Start 01/11/19 at 09:00; Status UNV Gabapentin (Neurontin) 100 mg TID PO Last administered on 01/12/19at 08:25; Admin Dose 100 MG; Start 01/10/19 at 13:00 Pantoprazole (Protonix Tab) 40 mg DAILY@06 PO Last administered on 01/12/19at 06:09; Admin Dose 40 MG; Start 01/11/19 at 06:00 Docusate Sodium (Colace) 200 mg BID PO Last administered on 01/12/19at 08:24; Admin Dose 200 MG; Start 01/11/19 at 09:00; Stop 01/13/19 at 21:01 Simethicone (Mylicon) 80 mg TID PRN PO .GAS; Start 01/10/19 at 10:00 Senna/Docusate Sodium (Senokot-S) 2 tab BID PRN PO .CONSTIPATION; Start 01/10/19 at 10:00 Magnesium Hydroxide (Milk Of Mag) 30 ml HS PRN PO .CONSTIPATION; Start 01/10/19 at 10:00 Bisacodyl (Dulcolax Supp) 10 mg DAILY PRN [place] .CONSTIPATION; Start 01/10/19 at 1 0:00 Sodium Biphosphate/ Sodium Phosphate (Fleet Enema) 133 ml DAILY PRN [place] .CONSTIPATION; Start 01/10/19 at 10:00 Ketorolac Tromethamine (Toradol) 15 mg Q6H PRN IV .PAIN; Start 01/10/19 at 10:00 Naloxone HCl (Narcan) 0.2 mg Q2M PRN IV .RESP RATE; Start 01/10/19 at 10:00 IV Flush (NS 3 ml) 3 ml per protocol IV ; Start 01/10/19 at 10:00 Aspirin (Halfprin) 81 mg BID PO Last administered on 01/12/19at 08:25; Admin Dose 81 MG; Start 01/11/19 at 09:00 Acetaminophen/ Hydrocodone Bitart ([place] (5/325)) 2 tab Q6H PRN PO MODERATE PAIN LEVEL 4-6 Last administered on 01/11/19at 21:10; Admin Dose 2 TAB; Start 01/10/19 at 10:00 Hydralazine HCl (Apresoline) 10 mg Q6H PRN IV SBP>160; Start 01/10/19 at 14:00 Albuterol (Ventolin Hfa) 2 puff Q4H RESP THERAPY PRN INH Dyspnea; Start 01/11/19 at 08:00 Acetaminophen (Tylenol Tab) 500 mg Q6H PRN PO MILD PAIN(1-3)OR ELEVATED TEMP; Start 01/11/19 at 14:30 Tamsulosin HCl (Flomax) 0.4 mg BID PO Last administered on 01/12/19at 08:25; Admin Dose 0.4 MG; Start 01/11/19 at 21:00 ANU SHEPPARD NP Jan 12, 2019 09:49
[2019-01-12] MEDS: HYDROCODONE/APAP (5/325) TAB PO PRN (11:47)
[2019-01-12 14:39] VITALS: BP 103/55; PULSE 86; RESP 18
== END 2019-01-12 17:00 | disposition home or self-care (01) | DRG 470 ==
LOC: REC 01-10 05:53 → MS1 01-10 11:43
PROVIDERS: ADMIT Orthopaedic Surgery Adult Reconstructive Orthopaedic Surgery; ATTEND Orthopaedic Surgery Adult Reconstructive Orthopaedic Surgery
PROC: 8E0YXBZ Computer Assisted Procedure of Lower Extremity (ICD-10-PCS; 2019-01-10)
PROC: 0SRB04A Replacement of Left Hip Joint with Ceramic on Polyethylene Synthetic Substitute, Uncemented, Open Approach (ICD-10-PCS; principal; 2019-01-10 07:30)
DX: M16.12 Unilateral primary osteoarthritis, left hip (principal); R33.9 Retention of urine, unspecified; J98.01 Acute bronchospasm; D64.9 Anemia, unspecified
CPT/HCPCS: 72170; 73500; 73530; 80048; 81003; 85025; 85610; 86850; 86900; 86901; 88304; 88311; 97116; 97161; 97165; 97530; A4310; C1776; J0171; J0690; J0735; J1885; J2001; J2250; J2274; J2370; J2405; J2710; J2795; J3370; J7120

== ENCOUNTER → 2019-01-09 | Outpatient (CLI) | payer BC ==
[~2019-01-09] MED LIST changes: +ACET1TAB40 PO; -CEFAZOLIN 2 GM/50 ML (PMX) 50 ML IVPB ONE; -HIP PAIN COCKTAIL (CEFUROXIME) INJ SCH; -LACTATED RINGER'S 1,000 ML IV* SCH; -TRANEXAMIC ACID 1,000 MG in NS 100 ML INTRA-OP X1 IVPB ONE; -TRANEXAMIC ACID 1,000 MG in NS 100 ML PRE-OP X1 IVPB ONE
--- NOTE | 2019-01-09 16:20 | PREOPHP ---
DATE OF ADMISSION: 01/09/2019 Mr. Pappas is here for his preoperative evaluation. I discussed alternatives to left hip replacement. He declined further conservative treatment. I discussed the risks associated with surgery which include but are not limited to infection, deep venous thrombosis, pulmonary embolism, damage to nerves and blood vessels, numbness, leg length discrepancy, instability, dislocation, wear of prosthesis, loosening of prosthesis, need for revision surgery, heart attack, stroke, risks associated with anesthesia and even . The patient understood the risks and informed consent was obtained. We will proceed with left total hip arthroplasty on 01/10/2019 at [facility]. All questions were answered to patient's satisfaction. The patient received prescriptions for aspirin twice daily as well as tramadol and Mongo after CURES was performed. Dictated By: DOC PIERRE/SHARON Conf#: [id number] DID#: [id number] MTDD
== END | disposition home or self-care (01) ==
LOC: HKI 13:59
PROVIDERS: ATTEND Orthopaedic Surgery Adult Reconstructive Orthopaedic Surgery
DX: Z01.818 Encounter for other preprocedural examination (principal)
CPT/HCPCS: G0463

== ENCOUNTER → 2019-01-23 | Outpatient (CLI) | payer BC ==
--- NOTE | 2019-01-23 17:36 | RADRPT ---
PROCEDURE: XR Left Hip and pelvis. CLINICAL INDICATION: Left hip pain. Pelvic pain. Postop. TECHNIQUE: Two views. Frontal pelvis and frontal left hip. COMPARISON: 01/10/2019. FINDINGS: There is no fracture or dislocation. The soft tissues are normal. There are bilateral total hip arthroplasties which appears satisfactory with no fracture, dislocation , or loosening. There is no lytic or blastic lesion. The upper pelvis is not included on the image. IMPRESSION: 1. Satisfactory postoperative appearance of both hips. 2. Otherwise unremarkable study. RPTAT: QQ .Artie Alberts MD, Date Time Electronically viewed and signed by .Artie Alberts MD, on 01/23/2019 17:35 .R/
--- NOTE | 2019-01-23 21:24 | HKNOTE ---
DATE OF SERVICE: HISTORY OF PRESENT ILLNESS: Mr. Pappas is 2 weeks status post left total hip arthroplasty. He is doing well. He does not use any assisted devices. He does not require pain medications. He is taki ng his aspirin for DVT prophylaxis. He is satisfied with surgery. Date of surgery is 01/10/2019, left anterior total hip arthroplasty. PHYSICAL EXAMINATION: Gait: Nonantalgic gait, reciprocal gait pattern. Leg lengths are equal. Lef t hip exam healed anterior incision. No drainage. 5/5 function of quadriceps, tibialis anterior gas trocsoleus, negative Homans test. X-RAYS: AP pelvis x-ray. The prosthesis is in acceptable alignment. No fractures, dislocations. L eg lengths are equal. IMPRESSION: A 63-year-old male 3 weeks status post left total hip arthroplasty. PLAN: He will finish his remaining aspirin for DVT prophylaxis. We will request authorization for o utpatient physical therapy. He was instructed on wound care. He will follow up in 3 months. Dictated By: DOC PIERRE/SHARON Conf#: [id number] DID#: [id number]
== END | disposition home or self-care (01) ==
LOC: HKI 14:24
PROVIDERS: ATTEND Orthopaedic Surgery Adult Reconstructive Orthopaedic Surgery
DX: Z09 Encounter for follow-up examination after completed treatment for conditions other than malignant neoplasm (principal); Z96.642 Presence of left artificial hip joint
CPT/HCPCS: 73502